=== PATIENT | male | born 1990 | race American Indian/Alaskan Native ===

== ENCOUNTER 2017-03-22 22:05 | Emergency (ER) | payer SELFPAY ==
[2017-03-23] MEDS ORDERED: MOTRIN PO ONE (00:38)
[2017-03-23] MEDS ORDERED: PERCOCET 5/325 PO ONE (00:38)
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
[2017-03-23 01:16] LABS: Bilirubin,Urine NEG (Negative); Blood,Urine NEG (Negative); Ketones,Urine NEG (Negative); Leukocyte Esterase,Urine NEG (Negative); Mucus,Urine FEW /HPF; Nitrite,Urine NEG (Negative)
[2017-03-23 02:23] VITALS: BP 124/78
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
== END 2017-03-23 01:46 | disposition home or self-care (01) ==
LOC: ED 22:05
DX: N50.812 Left testicular pain (principal); N50.811 Right testicular pain; F17.200 Nicotine dependence, unspecified, uncomplicated
CPT/HCPCS: 81001; 87086; 93975; 99284

== ENCOUNTER 2018-01-31 00:22 | Emergency (ER) | payer OTHER ==
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
[2018-01-31 07:29] VITALS: BP 116/70
== END 2018-01-31 07:26 | disposition home or self-care (01) ==
LOC: ED 00:22
DX: S80.212A Abrasion, left knee, initial encounter (principal); V89.2XXA Person injured in unspecified motor-vehicle accident, traffic, initial encounter; M54.9 Dorsalgia, unspecified; M25.562 Pain in left knee; M25.511 Pain in right shoulder; Y93.89 Activity, other specified; Y92.89 Other specified places as the place of occurrence of the external cause; Y99.8 Other external cause status
CPT/HCPCS: 99283